=== PATIENT | male | born 1965 | race Caucasian/White ===

== ENCOUNTER 2018-08-19 12:44 | Emergency (ER) | payer SELFPAY ==
[~2018-08-19] VITALS: Ht 165.1 cm; Wt 67.7 kg
[2018-08-19 12:50] VITALS: BP 122/78
[2018-08-19] MEDS ORDERED: LIDOCAINE-MPF 1%, 5ML ONE ×2 (14:24)
[2018-08-19] MEDS ORDERED: LIDOCAINE-MPF 1%, 5ML INFIL ONE (14:30)
[2018-08-19] MEDS ORDERED: DIPH,PERTUSS(ACELL),TET VAC/PF 0.5 ML IM-VACC ONE (14:30)
--- NOTE | 2018-08-19 16:19 | NUR ---
Patient/Caregiver given discharge instructions and they have confirmed that they understand the instructions. Patient ambulatory with steady gait.
== END 2018-08-19 16:20 | disposition home or self-care (01) ==
LOC: ED 16:00
DX: S61.312A Laceration without foreign body of right middle finger with damage to nail, initial encounter (principal); S60.041A Contusion of right ring finger without damage to nail, initial encounter; M20.011 Mallet finger of right finger(s); J45.909 Unspecified asthma, uncomplicated; X58.XXXA Exposure to other specified factors, initial encounter; Y93.89 Activity, other specified; Y92.89 Other specified places as the place of occurrence of the external cause; Y99.8 Other external cause status
CPT/HCPCS: 11740; 12041; 99284